=== PATIENT | female | born 1970 | race Caucasian/White ===

== ENCOUNTER 2021-03-31 10:33 | Emergency (ER) | payer OTHER ==
[~2021-03-31] VITALS: Ht 154.9 cm; Wt 122.5 kg
[2021-03-31] MEDS ORDERED: ADVIL100 M3 PO (10:46)
[2021-03-31] MEDS ORDERED: AMITRIPTYLINE H10 M1 PO (10:47)
[2021-03-31 13:14] VITALS: BP 147/96
== END 2021-03-31 13:15 | disposition left against medical advice (07) ==
LOC: M.ERS 10:33
DX: M79.89 Other specified soft tissue disorders (principal); Z53.21 Procedure and treatment not carried out due to patient leaving prior to being seen by health care provider